=== PATIENT | male | born 1970 | race Caucasian/White ===

== ENCOUNTER 2016-07-28 06:51 | Day surgery (SDC) | payer BC ==
[2016-07-25 16:32] LABS: WBC (NOT ORDERED) (RFLEX) 0 (0-5)
[2016-07-25 17:31] LABS: HEMOGLOBIN 13.1 g/dL (13.6-17.8)
[2016-07-25 18:17] LABS: ASCORBIC ACID (UR NOT ORDER) NEG (NEG); BILIRUBIN, URINE NEGATIVE (NEG); KETONE, URINE NEGATIVE (NEG); LEUKOCYTE ESTERASE(NOT OR NEG (NEG)
--- NOTE | ~2016-07-28 | OP ---
Record Of Operation [facility] [address] [place]. [address] NAME: EMMANUEL RAY JR : 72 STATUS : [facility]#: [id number] AGE: 46 ADM/REG DATE : 07/28/16 MR#: [id number] REPORT SERV DATE: 07/28/16 DICTATED BY: KWADWO ANGEL JR. DATE: 07/28/16 REPORT STATUS : Draft TRANSCRIBED BY: MODL DATE: 07/28/16 DATE OF PROCEDURE: 07/28/2016 SURGEON: Kwadwo Angel M.D. PREOPERATIVE DIAGNOSIS: Bladder tumor. POSTOPERATIVE DIAGNOSIS: Bladder tumor. PROCEDURES PERFORMED: Cystoscopy, bilateral retrograde pyelogram, and transurethral resection of the bladder tumor. SPECIMENS: Right bladder tumor. DRAINS: None. ESTIMATED BLOOD LOSS: None. INDICATION: Mr. Ray is a 46-year-old gentleman, who I saw in the office for evaluation of microscopic hematuria. 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 He comes today for cystoscopy and transurethral resection of that bladder tumor. PROCEDURE IN DETAIL: After the patient was identified, proper informed consent was obtained. He was taken to the operating room. General anesthesia was performed without complication using a laryngeal mask airway. He was then prepped and draped in normal sterile fashion in the low lithotomy position. Cystoscopic examination again revealed the false passages in the posterior bulbous urethra. Easily navigated through this area, there was no stricture in the area into the bladder. 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 Both ureteral orifices were identified and retrograde pyelograms were performed bilaterally. Both retrograde pyelograms showed normal course and caliber to the ureters without filling defect, evidence of obstruction, or other abnormality, and overall normal retrograde pyelograms. I then performed resection of the bladder tumor along the right bladder neck. The specimen was sent in two pieces to Pathology, labeled right bladder wall bladder tumor. The area was cauterized using electrocautery. Images were taken both pre and post resection for the patient found in the hospital record. The patient was awakened in the operating room, transferred to the Postanesthesia Care Unit in stable condition. I will see him back in one week for path results. ANA/ANANYA Kwadwo Angel Jr., M.D. Record Of Operation [address] [facility] [address] NAME: LINDSEYEMMANUELAUSTEN HERNANDEZ JR : 72 STATUS : [facility] PAT#: [id number] AGE: 46 ADM/REG DATE : 07/28/16 MR#: [id number] REPORT SERV DATE: 07/28/16 DICTATED BY: KWADWO ANGEL JR. DATE: 07/28/16 REPORT STATUS : Draft TRANSCRIBED BY: ANANYA DATE: 07/28/16 / [id number] CC: Gatito Walsh Jr., M.D.
[~2016-07-28 06:51] MED LIST: CELEXA20 PO; NAP500 PO
== END 2016-07-28 11:55 | disposition home or self-care (01) ==
LOC: SDC 06:51
PROVIDERS: Urology
PROC: 0TBB8ZX Excision of Bladder, Via Natural or Artificial Opening Endoscopic, Diagnostic (ICD-10-PCS; principal; 2016-07-28 09:00)
DX: C67.9 Malignant neoplasm of bladder, unspecified (principal); R39.15 Urgency of urination; G47.30 Sleep apnea, unspecified; Z87.891 Personal history of nicotine dependence; Z79.899 Other long term (current) drug therapy
CPT/HCPCS: 74420; 81001; 85014; 85018; 88307; 93005; A9270-GY; J2250; J2405; J2710; J3010; Q9967